=== PATIENT | female | born 1980 | race Caucasian/White ===

== ENCOUNTER → 2016-04-16 | Outpatient (CLI) | payer BC ==
[~2016-04-16] VITALS: Ht 167.6 cm; Wt 51.7 kg
[~2016-04-16] MED LIST: ALPR0.5T PO; BUPR200T2 PO; CITA40TA12 PO; CLON1TAB PO; QUET25TA5 PO
[2016-04-16 08:47] VITALS: BP 119/42
--- NOTE | 2016-04-18 12:18 | PATHOLOGY ---
PATHOLOGY REPORT * * * * * * * * FINAL DIAGNOSIS: Breast tissue, right breast mass needle biopsies: - INVASIVE DUCTAL CARCINOMA, GRADE 2. SEE COMMENT. - DUCTAL CARCINOMA IN SITU, CRIBRIFORM TYPE, INTERMEDIATE GRADE. COMMENT: Sections of the right breast mass needle biopsy reveal an invasive ductal carcinoma. The tumor shows moderate tubule formation, mild to focal moderate nuclear atypia, and moderate mitotic activity. 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 The invasive carcinoma measures up to 1.1 cm in greatest dimension on the glass slide. There are no tumor-associated calcifications. There is no lymphovascular tumor invasion. Breast prognostic studies will be obtained, the results of which will be reported separately. The case is also examined by Dr. Norman, who concurs with the diagnosis. (TABM:; d/t: 04/17/16) REPORT ELECTRONICALLY SIGNED BY: Miguel A Miller M.D. DATE/TIME: 04/18/2016 12:18 * * * * * * * * GROSS PATHOLOGY: Received in formalin labeled "Alea Frausto and right breast," are several needle cores of yellow-frausto fibrofatty tissue measuring 2.2 x 0.4 x 0.3 cm in aggregate dimensions. The tissue is submitted in its entirety in cassettes A1-A2. The cold ischemic time is 5 minutes. The total formalin fixation time is 12 hours and 25 minutes. (TTL; 04/16/2016) INITIAL CPT CODE(S): A; 50104, 93612(4) Professional services performed [place] [address] Technical services performed by [facility] at [address] [place] [address], [facility] [address], [place] [address]. SPECIMEN(S) RECEIVED: A.Right breast mass CLINICAL HISTORY: Right breast mass PATIENT: ALEA FRAUSTO /AGE: 1101/14/1980 (Age: 36) PATIENT #: [id number] ALT CASE #: SPECIMEN COLLECTION DATE: 04/16/2016 SPECIMEN RECEIVED DATE: 04/16/2016 [facility] - [id number] [place] [address] - PHONE: [phone] * * * END OF REPORT * * *
== END | disposition home or self-care (01) ==
LOC: US 08:03
PROVIDERS: ATTEND Nurse Practitioner Family
DX: D49.3 Neoplasm of unspecified behavior of breast (principal); N63 Unspecified lump in breast
CPT/HCPCS: 19081; 76942; C1713; G0206; 77065